=== PATIENT | female | born 1995 | race Caucasian/White ===

== ENCOUNTER 2023-10-04 07:30 | Outpatient (CLI) | payer OTHER ==
--- NOTE | 2023-10-04 15:18 | Ultrasound Report ---
PROCEDURE: Pelvic w/Transvaginal INDICATIONS: IRREGULAR MENSTRATION TECHNIQUE: Real-time scanning was performed of the pelvic organs, with image documentation. Additional endovagi nal scanning was necessary due to incomplete visualization of the adnexal and endometrial structures by transabdominal scanning. COMPARISON: None. FINDINGS: Uterus: Bicornuate uterus. Uterus is anteverted and normal in size at 7.7 x 3.6 x 5.3 cm. The myome trium is homogeneous. The endometrium measures 8.6 mm on the right and 12.5 mm on the left mm in com bined thickness. IUD is in the right lower uterine segment and embedded in the myometrium, best seen on the cine clips. Ovaries: The right ovary measures 2.3 x 2.5 x 4.2 cm, with a calculated ovarian volume of 12.6 cc. The left ovary measures 3.5 x 1.6 x 1.9 cm, with a calculated ovarian volume of 5.6 cc. The ovaries have a normal sonographic appearance. Less than 12 follicles can be seen in each ovary. No adnexal masses are seen. No cystic lesions measuring greater than 3 cm. Other: No pathologic free abdominal or pelvic fluid. IMPRESSION: 1.Bicornuate uterus. 2.Intrauterine device is malpositioned in the right lower uterine segment and partially embedded in t he myometrium. 3.Normal sonographic appearance of the bilateral ovaries. Reviewed by: Von Cuevas MD on 10/04/2023 3:17 PM PDT Approved by: Von Cuevas MD on 10/04/2023 3:17 PM PDT Station ID: [id number]
== END 2023-10-04 07:31 | disposition home or self-care (01) ==
LOC: DI 07:30
PROVIDERS: ATTEND Nurse Practitioner Family
DX: T83.89XA Other specified complication of genitourinary prosthetic devices, implants and grafts, initial encounter (principal); Q51.3 Bicornate uterus